=== PATIENT | female | born 1950 | race Caucasian/White ===

== ENCOUNTER 2018-10-22 22:03 | Emergency (ER) | payer BC ==
--- NOTE | 2018-10-22 22:23 | ERPHSYRPT ---
- History of Present Illness Time Seen by Provider: 10/22/18 22:15 Source: patient Exam Limitations: no limitations Physician History: 67 y/o white female presents with right lower leg swelling and redness for one day. pt is on coumadin for afib and valve replacement. pt denies soa. pt has never had a dvt in past. pts inr should be between 2.5 and 3.5. pt is standing up all day at work. Method of Injury: other (no injury) Occurred: days ago (1) Quality: aching, burning Severity of Pain-Max: mild Severity of Pain-Current: mild Lower Extremities Pain: leg: right Associated Symptoms: none Allergies/Adverse Reactions: No Known Drug Allergies Allergy (Unverified 10/22/18 22:15) - Review of Systems Constitutional: No Symptoms Eyes: No Symptoms Ears, Nose, & Throat: No Symptoms Respiratory: No Symptoms Cardiac: No Symptoms Abdominal/Gastrointestinal: No Symptoms Genitourinary Symptoms: No Symptoms Musculoskeletal: No Symptoms Skin: Cellulitis Neurological: No Symptoms Psychological: No Symptoms Endocrine: No Symptoms Hematologic/Lymphatic: No Symptoms Immunological/Allergic: No Symptoms All Other Systems: Reviewed and Negative - Past Medical History Neurological History: No Pertinent History ENT History: No Pertinent History Cardiac History: No Pertinent History, Other (atrial fibrillation) Respiratory History: No Pertinent History Endocrine Medical History: No Pertinent History Musculoskeletal History: No Pertinent History GI Medical History: No Pertinent History History: No Pertinent History Psycho-Social History: No Pertinent History Female Reproductive Disorders: No Pertinent History - Past Surgical History Neuro Surgical History: No Pertinent History Cardiac: Valve Replacement Respiratory: No Pertinent History Gastrointestinal: No Pertinent History Genitourinary: No Pertinent History Musculoskeletal: No Pertinent History Female Surgical History: No Pertinent History - Nursing Vital Signs Nursing Vital Signs: Initial Vital Signs Temperature 97.5 F 10/22/18 22:18 Pulse Rate 75 10/22/18 22:18 Respiratory Rate 18 10/22/18 22:18 Blood Pressure 145/94 10/22/18 22:18 O2 Sat by Pulse Oximetry 97 10/22/18 22:18 Pain Scale Pain Intensity 0 - Physical Exam General Appearance: no apparent distress, alert, anxiety Eyes, Ears, Nose, Throat Exam: normal ENT inspection, moist mucous membranes Neck Exam: normal inspection, non-tender, supple, full range of motion Cardiovascular/Respiratory Exam: chest non-tender, normal breath sounds, regular rate/rhythm, no respiratory distress Gastrointestinal/Abdominal Exam: non-tender Back Exam: normal inspection, normal range of motion, vertebral tenderness, No CVA tenderness Hips Exam: bilateral: non-tender, normal inspection, normal range of motion, no evidence of injury Legs Exam: right leg: normal range of motion, no evidence of injury, soft tissue tenderness, swelling, other (cellulitis ), left leg: non-tender, normal inspection Knees Exam: bilateral knee: non-tender, normal inspection, normal range of motion, no evidence of injury Ankle Exam: bilateral ankle: non-tender, normal inspection, normal range of motion, no evidence of injury Foot Exam: bilateral foot: non-tender, normal inspection, normal range of motion , no evidence of injury Neuro/Tendon Exam: normal sensation, normal motor functions, normal tendon functions, responds to pain Mental Status Exam: alert, oriented x 3, cooperative Skin Exam: warm, other (right below knee with cellulitisn) SpO2 Interpretation: normal O2 Delivery: Room Air - Course Nursing assessment & vital signs reviewed: Yes Ordered Tests: Active Orders 24 hr Category Date Time Status IV Insertion STAT Care 10/22/18 22:24 Active CBC Stat Lab 10/22/18 22:30 Completed D-DIMER QUANTITATION Stat Lab 10/22/18 22:30 Completed PROTIME WITH INR Stat Lab 10/22/18 22:30 Completed Medication Summary Generic Name Dose Route Start Last Admin Trade Name Freq PRN Reason Stop Dose Admin Ceftriaxone Sodium/Dextrose 1 g in 50 mls @ 100 mls/hr 10/22/18 23:15 23:21 Rocephin 1 Gm-D5w 50 Ml Bag IV 10/22/18 23:44 100 mls/hr STAT STA 100 mls/hr Administration Discontinued Medications Generic Name Dose Route Start Last Admin Trade Name Freq PRN Reason Stop Dose Admin Ceftriaxone Sodium/Dextrose Confirm 10/22/18 23:17 Rocephin 1 Gm-D5w 50 Ml Bag Administered 10/22/18 23:18 Dose 1 g in 50 mls @ ud IV .STK-MED ONE Lab/Rad Data: Laboratory Result Diagrams 10/22/18 22:30 Laboratory Results 10/22/18 10/22/18 Range/Units 22:30 22:30 WBC 5.0 (4.0-10.5) K/mm3 RBC 4.37 (4.1-5.4) M/mm3 Hgb 13.7 (12.0-16.0) gm/dl Hct 41.9 (35-47) % MCV 95.9 (78-100) fl MCH 31.4 (26-32) pg MCHC 32.7 (32-36) g/dl RDW 12.4 (11.5-14.0) % Plt Count 158 (150-450) K/mm3 MPV 10.7 H (6-9.5) fl PT 39.6 H (9.95-12.35) SECONDS INR 3.42 H (0.8-3.0) D-Dimer 249 (215-500) ng/mL - Progress Progress: unchanged Counseled pt/family regarding: lab results, diagnosis, need for follow-up - Departure Departure Disposition: Home Clinical Impression: Cellulitis Condition: Stable Critical Care Time: No Referrals: Provider,Unknown [NON-STAFF PHY W/O PRIVILEGES] - Additional Instructions: follow up with primary doctor for further management. Prescriptions: Cefdinir 300 mg PO BID 7 Days #14 capsule
[2018-10-22 23:02] LABS: INR 3.42 (0.8-3.0); PROTIME 39.6 SECONDS (9.95-12.35)
[2018-10-22 23:03] LABS: Hematocrit 41.9 % (35-47); Hemoglobin 13.7 gm/dl (12.0-16.0); Mean Cell Volume 95.9 fl (78-100); Mean Corpuscular Hemoglobin 31.4 pg (26-32); Mean Corpuscular Hgb Concent. 32.7 g/dl (32-36); Mean Platelet Volume 10.7 fl (6-9.5); Platelet Count 158 K/mm3 (150-450); Red Blood Count 4.37 M/mm3 (4.1-5.4); Red Cell Distribution Width 12.4 % (11.5-14.0)
[2018-10-22] MEDS ORDERED: ROCEPHIN 1 Gm-D5w 50 ml Bag** 1 G/50 ML IVPB IV STA (23:15)
[2018-10-22] MEDS ORDERED: ROCEPHIN 1 Gm-D5w 50 ml Bag** 1 G/50 ML IVPB IV ONE (23:17)
[2018-10-23 00:03] VITALS: BP 94/64; PULSE 55; O2SAT 94
== END 2018-10-23 00:12 | disposition home or self-care (01) ==
LOC: EDBD 22:03 → ED 22:03 → MERGE 22:03 → ED 10-23 00:12
DX: L03.90 Cellulitis, unspecified (principal)
CPT/HCPCS: 36000; 36415; 85027; 85379; 85610; 96365; 99284; J0696

== ENCOUNTER 2020-10-26 22:39 | Emergency (ER) | payer MEDICARE, OTHER ==
[2020-10-26 23:44] LABS: Absolute Neutrophil Ct (ANC) 3.34 (1.4-6.9); BASOPHIL % 0.4 % (0.0-0.4); Basophil (Absolute #) 0.02 (0-0.4); Eosinophil % 3.6 % (0.00-5.0); Hematocrit 43.4 % (35-47); Hemoglobin 14.2 gm/dl (12.0-16.0); Lymphocyte (Absolute #) 1.31 (1.0-4.6); Lymphocytes % 23.7 % (24.0-44.0); Mean Cell Volume 94.8 fl (78-100); Mean Corpuscular Hgb Concent. 32.7 g/dl (32-36); Mean Platelet Volume 9.9 fl (7.5-11.0); Monocyte (Absolute #) 0.65 (0.0-1.3); Monocytes % 11.8 % (0.0-12.0); Neutrophil % 60.5 % (36.0-66.0); Platelet Count 156 K/mm3 (150-450); Red Blood Count 4.58 M/mm3 (4.1-5.4); Red Cell Distribution Width 12.4 % (11.5-14.0); White Blood Count 5.5 K/mm3 (4.0-10.5)
--- NOTE | 2020-10-26 23:47 | ERPHSYRPT ---
- History of Present Illness Source: patient, other () Exam Limitations: no limitations Patient Subjective Stated Complaint: Patient states " I checked my B/P little over 30 minutes ago and it registered 173/157." Triage Nursing Assessment: Patient arrived to ED and ambulated back to room without difficulty. Patient A/O times 4. Patient follows instructions without difficulty. Patient denies any chest pain or SOB. 02 sat 97% on room air. Lungs clear bilateral A/P throughout. Respiratory regular and easy and non-labored. Apical pulse 70 Patient with no dependent edema noted. Patient stated she took her Toprol that is prescribed at 2100. Patient denies any headache or dizziness. Patient denies any N/V. Neuro checks WNL. Physician History: 70 yo wf w elevated BP today. She states that she has had some nausea wo vomiting. She denies KEYES/Focal weakness/Chest pain/dyspnea/fever/cough/coryza/diarrhea. Timing/Duration: today Modifying Factors: Improves With: other Associated Symptoms: nausea, No vomiting, No abdominal pain, No shortness of breath, No heartburn, No diaphoresis, No cough, No chills, No chest pain, No fever, No headaches, No loss of appetite, No malaise, No syncope, No seizure, No weakness Allergies/Adverse Reactions: No Known Drug Allergies Allergy (Unverified 10/26/20 22:46) Home Medications: Digoxin 0.125 mg Tablet [Lanoxin 0.125MG TABLET] 0.125 mg PO DAILY 06/25/20 [History] Losartan Potassium 50 mg PO QAM 06/25/20 [History] Metoprolol Tartrate 25 mg PO BID 06/25/20 [History] Omeprazole 20 mg PO QAM 06/25/20 [History] Pravastatin Sodium 40 mg PO QPM 06/25/20 [History] Warfarin Sodium 5 mg [Coumadin 5 MG] 5 mg PO UD 06/25/20 [History] Zolpidem Tartrate 5 mg [Ambien 5 MG Tablet] 5 mg PO HS 06/25/20 [History] Hx Tetanus, Diphtheria Vaccination/Date Given: No Hx Influenza Vaccination/Date Given: Yes Hx Pneumococcal Vaccination/Date Given: Yes Immunizations Up to Date: Yes Travel Risk - International Travel Have you traveled outside of the country in past 3 weeks: No - Coronavirus Screening Are you exhibiting any of the following symptoms?: No Close contact with a COVID-19 positive Pt in past 14-21 Days: No - Vaccine Status Have you recieved a Covid-19 vaccination: Yes Manager Room: [employer] - Vaccination Dates Date of 2cond Vaccination (if applicable): 04/28/20 - Review of Systems Constitutional: No Symptoms Eyes: No Symptoms Ears, Nose, & Throat: No Symptoms, Throat Swelling Cardiac: No Symptoms Abdominal/Gastrointestinal: No Symptoms, Nausea, No Vomiting Genitourinary Symptoms: No Symptoms Musculoskeletal: No Symptoms Skin: No Symptoms Neurological: No Symptoms Psychological: No Symptoms Endocrine: No Symptoms Hematologic/Lymphatic: No Symptoms, Easy Bruising - Past Medical History Pertinent Past Medical History: Yes Neurological History: No Pertinent History ENT History: No Pertinent History Cardiac History: No Pertinent History, Hypertension, Other Respiratory History: No Pertinent History Endocrine Medical History: No Pertinent History Musculoskeletal History: No Pertinent History GI Medical History: No Pertinent History, GERD History: No Pertinent History Psycho-Social History: No Pertinent History Female Reproductive Disorders: No Pertinent History, Breast Cancer Other Medical History: breast CA 2009 - Past Surgical History Past Surgical History: Yes Neuro Surgical History: No Pertinent History Cardiac: CABG, Valve Replacement Respiratory: No Pertinent History Gastrointestinal: No Pertinent History Genitourinary: No Pertinent History Musculoskeletal: No Pertinent History Female Surgical History: No Pertinent History Other Surgical History: CABG with valve replacement 2003 - Social History Smoking Status: Former smoker Exposure to second hand smoke: No Drug Use: none Patient Lives Alone: No Significant Family History: no pertinent family hx - Female History Hx Last Menstrual Period: POST Hx Now: No - Nursing Vital Signs Nursing Vital Signs: Initial Vital Signs Temperature 97.1 F 10/26/20 22:40 Pulse Rate 72 10/26/20 22:40 Respiratory Rate 18 10/26/20 22:40 Blood Pressure 163/92 10/26/20 22:40 O2 Sat by Pulse Oximetry 97 10/26/20 22:40 Pain Scale Pain Intensity 0 MIld BP elevation - Physical Exam General Appearance: no apparent distress Eye Exam: PERRL/EOMI, eyes nml inspection Ears, Nose, Throat Exam: normal ENT inspection, TMs normal, pharynx normal, moist mucous membranes Neck Exam: normal inspection, non-tender, supple, full range of motion, No meningismus, No mass, No Brudzinski, No Kernig's, No carotid bruit Respiratory Exam: normal breath sounds, lungs clear, airway intact, No respiratory distress Gastrointestinal/Abdomen Exam: soft, normal bowel sounds, No tenderness Back Exam: normal inspection, normal range of motion, No CVA tenderness Extremity Exam: normal inspection, normal range of motion Neurologic Exam: alert, oriented x 3, cooperative, customer service specialist II-XII nml as tested, normal mood/affect, nml cerebellar function, nml station & gait, sensation nml, No motor deficits, No sensory deficit Skin Exam: normal color, warm, dry Lymphatic Exam: No adenopathy SpO2 Interpretation: normal SpO2: 97 O2 Delivery: Room Air - Course EKG Interpreted by Me: RATE (NSR/1st degree AV block/PAC's/RBBB/LAFB/Poor R wave progression) - CT Exams Head CT Interpretation: Tele-radiologist Report (NAD) Ordered Tests: Active Orders 24 hr Category Date Time Status EKG-ER Only STAT Care 10/26/20 23:13 Completed HEAD WITHOUT CONTRAST [CT] Stat Exams 10/27/20 00:38 Taken CBC W DIFF Stat Lab 10/26/20 23:40 Completed CMP Stat Lab 10/26/20 23:40 Completed PROTIME WITH INR Stat Lab 10/26/20 23:40 Completed PTT Stat Lab 10/26/20 23:40 Completed TROPONIN Q3H Lab 10/26/20 23:40 Completed Medication Summary Discontinued Medications Generic Name Dose Route Start Last Admin Trade Name Marioq PRN Reason Stop Dose Admin Ondansetron HCl 4 mg 10/27/20 02:18 10/27/20 02:22 Zofran Odt 4 Mg PO 10/27/20 02:19 4 mg STAT ONE Administration Ondansetron HCl Confirm 10/27/20 02:19 Zofran Odt 4 Mg Administered 10/27/20 02:20 Dose 4 mg .ROUTE .[employer]agram-[employer]Tagg ONE Lab/Rad Data: Laboratory Result Diagrams 10/26/20 23:40 10/26/20 23:40 Laboratory Results 10/26/20 10/26/20 10/26/20 Range/Units 23:40 23:40 23:40 WBC (4.0-10.5) K/mm3 RBC (4.1-5.4) M/mm3 Hgb (12.0-16.0) gm/dl Hct (35-47) % MCV (78-100) fl MCH (26-32) pg MCHC (32-36) g/dl RDW (11.5-14.0) % Plt Count (150-450) K/mm3 MPV (7.5-11.0) fl Gran % (36.0-66.0) % Eos # (Auto) (0-0.5) Absolute Lymphs (auto) (1.0-4.6) Absolute Monos (auto) (0.0-1.3) Lymphocytes % (24.0-44.0) % Monocytes % (0.0-12.0) % Eosinophils % (0.00-5.0) % Basophils % (0.0-0.4) % Absolute Granulocytes (1.4-6.9) Basophils # (0-0.4) PT 30.3 H (9.4-12.5) SECONDS INR 2.57 (0.8-3.0) APTT 44.4 H (25.1-36.5) SECONDS Sodium 141 (137-145) mmol/L Potassium 4.3 (3.5-5.1) mmol/L Chloride 104 (98-107) mmol/L Carbon Dioxide 31 H (22-30) mmol/L Anion Gap 10.5 (5-15) MEQ/L BUN 16 (7-17) mg/dL Creatinine 0.75 (0.52-1.04) mg/dL Estimated GFR > 60.0 ML/MIN Glucose 93 (74-106) mg/dL Calcium 9.5 (8.4-10.2) mg/dL Total Bilirubin 0.60 (0.2-1.3) mg/dL AST 36 (14-36) U/L ALT 28 (0-35) U/L Alkaline Phosphatase 63 (38-126) U/L Troponin I < 0.012 (0.000-0.034) ng/mL Serum Total Protein 7.0 (6.3-8.2) g/dL Albumin 4.2 (3.5-5.0) g/dL 10/26/20 Range/Units 23:40 WBC 5.5 (4.0-10.5) K/mm3 RBC 4.58 (4.1-5.4) M/mm3 Hgb 14.2 (12.0-16.0) gm/dl Hct 43.4 (35-47) % MCV 94.8 (78-100) fl MCH 31.0 (26-32) pg MCHC 32.7 (32-36) g/dl RDW 12.4 (11.5-14.0) % Plt Count 156 (150-450) K/mm3 MPV 9.9 (7.5-11.0) fl Gran % 60.5 (36.0-66.0) % Eos # (Auto) 0.20 (0-0.5) Absolute Lymphs (auto) 1.31 (1.0-4.6) Absolute Monos (auto) 0.65 (0.0-1.3) Lymphocytes % 23.7 L (24.0-44.0) % Monocytes % 11.8 (0.0-12.0) % Eosinophils % 3.6 (0.00-5.0) % Basophils % 0.4 (0.0-0.4) % Absolute Granulocytes 3.34 (1.4-6.9) Basophils # 0.02 (0-0.4) PT (9.4-12.5) SECONDS INR (0.8-3.0) APTT (25.1-36.5) SECONDS Sodium (137-145) mmol/L Potassium (3.5-5.1) mmol/L Chloride (98-107) mmol/L Carbon Dioxide (22-30) mmol/L Anion Gap (5-15) MEQ/L BUN (7-17) mg/dL Creatinine (0.52-1.04) mg/dL Estimated GFR ML/MIN Glucose (74-106) mg/dL Calcium (8.4-10.2) mg/dL Total Bilirubin (0.2-1.3) mg/dL AST (14-36) U/L ALT (0-35) U/L Alkaline Phosphatase (38-126) U/L Troponin I (0.000-0.034) ng/mL Serum Total Protein (6.3-8.2) g/dL Albumin (3.5-5.0) g/dL - Progress Progress Note: 10/27/20 02:14 BP mildly elevated during stay but acceptable. 10/27/20 02:40 10/27/20 02:41 Counseled pt/family regarding: lab results, diagnosis, need for follow-up, rad results - Departure Departure Disposition: Home Clinical Impression: Hypertension Condition: Stable Critical Care Time: No Referrals: CHRISTIANO CONRAD [Primary Care Provider] - Instructions: High Blood Pressure (DC) Additional Instructions: Continue with current blood pressure meds Follow up with your family MD Return to ER for focal weakness/headache/chest pain/Shortness of breath Prescriptions: Ondansetron ODT 4 MG [Zofran Odt 4 mg] 4 mg PO STAT PRN #10 tab PRN Reason: Nausea
[2020-10-26 23:51] LABS: INR 2.57 (0.8-3.0); PROTIME 30.3 SECONDS (9.4-12.5)
[2020-10-26 23:53] LABS: PTT 44.4 SECONDS (25.1-36.5)
[2020-10-26 23:55] LABS: ALBUMIN 4.2 g/dL (3.5-5.0); ALKALINE PHOSPHATASE 63 U/L (38-126); ANION GAP 10.5 MEQ/L (5-15); BLOOD UREA NITROGEN 16 mg/dL (7-17); CHLORIDE 104 mmol/L (98-107); Calcium 9.5 mg/dL (8.4-10.2); Carbon Dioxide 31 mmol/L (22-30); Creatinine 1 0.75 mg/dL (0.52-1.04); EST GLOMERULAR FILTRATION RATE > 60.0 ML/MIN; Glucose 93 mg/dL (74-106); Potassium 4.3 mmol/L (3.5-5.1); SGOT/AST 36 U/L (14-36); SGPT/ALT 28 U/L (0-35); SODIUM 141 mmol/L (137-145)
[2020-10-27] MEDS ORDERED: ZOFRAN ODT 4 MG PO ONE (02:18)
[2020-10-27] MEDS ORDERED: ZOFRAN ODT 4 MG ONE (02:19)
[2020-10-27 02:35] VITALS: BP 158/74; PULSE 65
[2020-10-27 02:42] VITALS: O2SAT 97
--- NOTE | 2020-10-27 09:00 | XRAY ---
Indication: Nausea. Hypertension. Multiple contiguous axial images obtained through the head without contrast. Comparison: None Normal appearing brain parenchyma, ventricles, and bony calvarium. Visualized paranasal sinuses and mastoid air cells are clear. Impression: Normal CT head without contrast exam. Comment: Preliminary interpretation made by [facility]. No critical discrepancy.
== END 2020-10-27 02:34 | disposition home or self-care (01) ==
LOC: ED 22:39
DX: I10 Essential (primary) hypertension (principal); R11.0 Nausea; Z79.899 Other long term (current) drug therapy; Z79.01 Long term (current) use of anticoagulants
CPT/HCPCS: 36415; 70450; 80053; 84484; 85025; 85610; 85730; 93005; 93041; 99284; Q0162